=== PATIENT | male | born 1950 | race Caucasian/White ===

== ENCOUNTER 2024-12-30 12:15 | Emergency (ER) | payer MEDICARE, OTHER ==
--- NOTE | 2024-12-30 12:31 | ERPHSYRPT ---
- History of Present Illness Time Seen by Provider: 12/30/24 12:31 Source: patient, family Exam Limitations: no limitations Physician History: This is an obese 74-year-old white male patient who presents to the emergency department by private vehicle accompanied by his spouse after falling. Patient fell onto his right shoulder and has pain in his right shoulder and right ankle. He has never been in our emergency department before. Patient states he was walking and both of his legs "gave out". This is occurred approximate 11 AM this morning prior to arrival. Patient was able to ambulate. Patient denies loss of consciousness. He did not hit his head. He does not have neck pain. Patient has a history of hypertension, diabetes and hyperlipidemia. Occurred: just prior to arrival Reason for Fall: fell from standing pos (Legs "gave out") Injuries/Pain Location: upper extremity (Right shoulder), lower extremity (Right ankle) Loss of Consciousness: no loss of consciousness Quality: aching Severity of Pain-Max: moderate Severity of Pain-Current: moderate Modifying Factors: Improves With: movement Associated Symptoms (Fall): extremity injury (Right shoulder and right ankle), trouble walking Allergies/Adverse Reactions: No Known Drug Allergies Allergy (Verified 12/30/24 12:41) Home Medications: Dapagliflozin Propanediol [Farxiga] 10 mg PO DAILY 12/30/24 [History] Lisinopril 5 mg [Zestril 5 MG] 5 mg PO DAILY 12/30/24 [History] Metoprolol Succinate 50 mg [Toprol Xl 50 MG] 50 mg PO DAILY 12/30/24 [History] Rosuvastatin Calcium 40 mg PO DAILY 12/30/24 [History] Travel Risk - International Travel Have you traveled outside of the country in past 3 weeks: No - Emerging Infectious Disease Are you exhibiting symptoms associated with any current EIDs: No - Review of Systems Constitutional: No Symptoms Eyes: No Symptoms Ears, Nose, & Throat: No Symptoms Respiratory: No Symptoms Cardiac: No Symptoms Abdominal/Gastrointestinal: No Symptoms Genitourinary Symptoms: No Symptoms Musculoskeletal: Fall, Joint Pain (Shoulder and right ankle) Skin: No Symptoms Neurological: No Symptoms Psychological: No Symptoms Endocrine: No Symptoms Hematologic/Lymphatic: No Symptoms Immunological/Allergic: No Symptoms All Other Systems: Reviewed and Negative - Past Medical History Pertinent Past Medical History: Yes - Nursing Vital Signs Nursing Vital Signs: Initial Vital Signs Pulse Rate 57 L 12/30/24 12:25 Respiratory Rate 18 12/30/24 12:25 Blood Pressure 125/59 12/30/24 12:25 O2 Sat by Pulse Oximetry 100 12/30/24 12:25 Pain Scale Pain Intensity 8 - Chantel Coma Score Best Eye Response ([place]): (4) open spontaneously Best Verbal Response ([place]): (5) oriented Best Motor Response ([place]ant[place]): (6) obeys commands Chantel Total: 15 - Physical Exam General Appearance: no apparent distress, alert, anxiety, obese Eye Exam: PERRL/EOMI, eyes nml inspection ENT Exam: airway nml, nml ext.inspection Neck Exam: supple, trachea midline, full range of motion, normal alignment, normal inspection, No c-collar in place Respiratory/Chest Exam: No chest tenderness, No respiratory distress Gastrointestinal Exam: No tenderness Rectal Exam: not done Back Exam: normal inspection, normal range of motion, No CVA tenderness, No vertebral tenderness Extremity Exam: limited range of motion (Shoulder and right ankle), tenderness (Right shoulder and right ankle) Neurologic Exam: alert, oriented x 3, cooperative, optic fibre drawer II-XII nml as tested, sensation nml Skin Exam: normal color, warm, dry SpO2 Interpretation: normal O2 Delivery: Room Air - Course Nursing assessment & vital signs reviewed: Yes Ordered Tests: Active Orders 24 hr Category Date Time Status IV Insertion STAT Care 12/30/24 15:22 Active Splint STAT Care 12/30/24 13:25 Active ANKLE (3 VIEWS) Stat Exams 12/30/24 12:57 Completed SHOULDER Stat Exams 12/30/24 12:57 Completed UPPER EXTREMITY W/O CONTRAST [CT] Stat Exams 12/30/24 13:23 Completed CBC W DIFF Stat Lab 12/30/24 16:00 Completed CMP Stat Lab 12/30/24 16:00 Completed Medication Summary Generic Name Dose Route Start Last Admin Trade Name Freq PRN Reason Stop Dose Admin Sodium Chloride 1,000 mls @ 250 mls/hr 12/30/24 15:30 12/30/24 16:14 Sodium Chloride 0.9% 1000 Ml IV 01/29/25 15:29 250 mls/hr .Q4H JOSE Administration Discontinued Medications Generic Name Dose Route Start Last Admin Trade Name Freq PRN Reason Stop Dose Admin Morphine Sulfate 4 mg 12/30/24 13:53 12/30/24 14:05 Morphine Sulfate 4 Mg/Ml Injection IM 12/30/24 13:54 4 mg STAT ONE Administration Morphine Sulfate Confirm 12/30/24 13:58 Morphine Sulfate 4 Mg/Ml Injection Administered 12/30/24 13:59 Dose 4 mg .ROUTE .STK-MED ONE Ondansetron HCl 4 mg 12/30/24 13:54 12/30/24 14:04 Zofran 4 Mg/Udtablet Orally Disintegrating PO 12/30/24 13:55 4 mg STAT ONE Administration Ondansetron HCl Confirm 12/30/24 13:57 Zofran 4 Mg/Udtablet Orally Disintegrating Administered 12/30/24 13:58 Dose 4 mg .ROUTE .STK-MED ONE Lab/Rad Data: Laboratory Result Diagrams 12/30/24 16:00 12/30/24 16:00 Laboratory Results 12/30/24 12/30/24 Range/Units 16:00 16:00 WBC 11.6 H (4.23-9.07) x10^3/uL RBC 3.36 L (4.63-6.08) x10^6/uL Hgb 10.2 L (13.7-17.5) g/dL Hct 34.9 L (40.1-51.0) % MCV 103.9 H (79.0-92.2) fL MCH 30.4 (25.7-32.2) pg MCHC 29.2 L (32.3-36.5) g/dL RDW 15.4 H (11.6-14.4) % Plt Count 197 (163-337) x10^3/uL MPV 10.7 (9.4-12.4) fL Gran % 83.7 H (34.0-67.9) % Immature Gran % (Auto) 1.2 H (0.001-0.429) % Nucleat RBC Rel Count 0.0 (0.00-0.2) % Eos # (Auto) 0.09 (0.04-0.54) x10^3/uL Immature Gran # (Auto) 0.14 H (0.001-0.031) x10^3u/L Absolute Lymphs (auto) 0.93 L (1.32-3.57) x10^3/uL Absolute Monos (auto) 0.69 (0.30-0.82) x10^3/uL Absolute Nucleated RBC 0.00 (0.00-0.012) x10^3u/L Lymphocytes % 8.0 L (21.8-53.1) % Monocytes % 5.9 (5.3-12.2) % Eosinophils % 0.8 (0.8-7.0) % Basophils % 0.4 (0.2-1.2) % Absolute Granulocytes 9.70 H (1.78-5.38) x10^3/uL Basophils # 0.05 (0.01-0.08) x10^3/uL Sodium 141 (135-145) mmol/L Potassium 4.6 (3.5-5.1) mmol/L Chloride 108 H (98-107) mmol/L Carbon Dioxide 19 L (22-30) mmol/L Anion Gap 18.5 H (5-15) MEQ/L BUN 21 H (9-20) mg/dL Creatinine 1.40 H (0.66-1.25) mg/dL Estimated GFR 53.1 ML/MIN Glucose 117 H (74-106) mg/dL Calcium 9.0 (8.4-10.2) mg/dL Total Bilirubin 0.90 (0.2-1.3) mg/dL AST 58 (17-59) U/L ALT 36 (0-50) U/L Alkaline Phosphatase 88 (38-126) U/L Serum Total Protein 7.0 (6.3-8.2) g/dL Albumin 4.4 (3.5-5.0) g/dL - Progress Progress: improved, pain not gone completely Progress Note: 12/30/24 13:44 My medical decision making and the assignment of moderate complexity to this patient's medical issue today is based on review of the patient's past medical history, review the patient's medication list, review the patient drug allergy list, history present illness and physical findings on examination. The workup in this patient includes x-ray of the patient's right shoulder and x-ray of the patient's right ankle. Differential diagnosis includes but is not limited to fracture/dislocation of right shoulder and right ankle, sprain right shoulder right ankle 12/30/24 15:01 After receiving morphine intramuscularly, the patient slowly becoming hypotensive. We will place an intravenous line and provide him with infusion of crystalloid. Will also draw some labs. The following radiographic studies were interpreted by the radiologist and I reviewed the impression: Right ankle x-ray shows nondisplaced oblique fracture of the distal fibula. Right shoulder x-ray shows displaced fracture inferior to the glenoid process. CT scan of the right upper extremity shows mildly displaced, slightly comminuted oblique fracture of the body of the scapula. Fracture line is just inferior to the glenoid process 12/30/24 16:17 I interpreted the patient's laboratory data results. Based on the laboratory data results, the patient does have slight leukocytosis as well as mild anemia. The remainder of his lab results do not show an acute, urgent medical issue. Patient had a vasovagal response to the morphine intramuscularly. Reassessment of him at this time shows his color to have returned and he is feeling much improved. I spoke with Dr. Thiago Nevarez, the orthopedic surgeon on-call. I reviewed the patient history, presenting complaint, physical findings on examination and the results of our radiographic studies. After review of the radiologist interpreta tion and impression of the findings with Dr. Thiago Nevarez, he states that we can place this patient in a midcalf walking boot as management for the nondisplaced fibular fracture and place the patient in a sling for the management of the scapular fracture that is nondisplaced. We have also made him an appointment to see Dr. Thiago Nevarez at 1 PM tomorrow, 12/31/2024 in the orthopedic clinic followed by an appointment to see human performance consultant Dr. Lilly to address the fibular fracture at 1:30 PM on 12/31/2024 Counseled pt/family regarding: diagnosis, rad results Medical Desision Making - Independent Historian Additional History obtained from: Spouse - Diagnostic Testing Diagnostic test were ordered, analyzed, and reviewed by me: Yes Radiological Interpretation: Reviewed by me, Teleradiologist Report - Risk of complications The pt has a mod risk of morbidity or mortality based on: Need for prescription drug management - Departure Departure Disposition: Home Clinical Impression: Closed right fibular fracture, Closed right scapular fracture Condition: Stable Critical Care Time: No Referrals: JESUS LOPEZ NP [Primary Care Provider] - Follow up/PCP as directed Additional Instructions: Ice pack to tender areas 3 times a day for the next 48 hours. Take your pain medicine another medication as prescribed. Proceed to the orthopedic and podiatric clinics tomorrow, 12/31/2024. You have an appointment to see the orthopedic surgeon, Dr. Randall at 1 PM. Followed by this appointment you are to see podiatric surgeon Dr. Lilly at 1:30 PM Prescriptions: Oxycodone HCl/Acetaminophen [Percocet 5-325 mg Tablet] 1 each PO Q8H PRN PRN #9 tablet MDD 3 PRN Reason: Moderate To Severe Pain
--- NOTE | 2024-12-30 13:39 | XRAY ---
Indication: Status post fall. Comparison: None 3 view right ankle demonstrates nondisplaced oblique fracture distal shaft fibula with soft tissue swelling. Incidental osteopenia and small plantar heel spur. No other bony, articular, or soft tissue abnormalities.
--- NOTE | 2024-12-30 13:41 | XRAY ---
Indication: Status post fall. Comparison: None 3 view right shoulder demonstrates displaced fracture inferior to glenoid process. Elsewhere osteopenia. No other bony, articular, or soft tissue abnormalities.
[2024-12-30] MEDS ORDERED: ZOFRAN ODT 4 MG ONE (13:57)
[2024-12-30] MEDS ORDERED: MORPHINE SULFATE 4 MG INJ ONE (13:58)
[2024-12-30] MEDS: ZOFRAN ODT 4 MG PO ONE (14:04)
[2024-12-30] MEDS: MORPHINE SULFATE 4 MG INJ IM ONE (14:05)
--- NOTE | 2024-12-30 14:47 | XRAY ---
Indication: Status post fall. Scapula fracture on same-day shoulder radiograph. Multiple contiguous axial images obtained through right shoulder. 2-D sagittal and coronal reformatted images obtained. Comparison: None Osseous structures demineralized consistent with patient's age. Mildly displaced slightly comminuted oblique fracture body of scapula. Fracture line just inferior to glenoid process. Glenohumeral and acromioclavicular joint intact. No abnormal effusion. Visualized noncontrasted soft tissues including visualized right lung unremarkable. Impression: Scapula fracture as detailed.
[2024-12-30 16:03] LABS: BASOPHIL % 0.4 % (0.2-1.2); Basophil (Absolute #) 0.05 x10^3/uL (0.01-0.08); Eosinophil % 0.8 % (0.8-7.0); Eosinophil (Absolute #) 0.09 x10^3/uL (0.04-0.54); Hematocrit 34.9 % (40.1-51.0); Hemoglobin 10.2 g/dL (13.7-17.5); IMMATURE GRAN # 0.14 x10^3u/L (0.001-0.031); IMMATURE GRAN % 1.2 % (0.001-0.429); Lymphocyte (Absolute #) 0.93 x10^3/uL (1.32-3.57); Mean Cell Volume 103.9 fL (79.0-92.2); Mean Corpuscular Hemoglobin 30.4 pg (25.7-32.2); Mean Corpuscular Hgb Concent. 29.2 g/dL (32.3-36.5); Mean Platelet Volume 10.7 fL (9.4-12.4); Monocyte (Absolute #) 0.69 x10^3/uL (0.30-0.82); Monocytes % 5.9 % (5.3-12.2); Neutrophil % 83.7 % (34.0-67.9); Platelet Count 197 x10^3/uL (163-337); Red Blood Count 3.36 x10^6/uL (4.63-6.08); Red Cell Distribution Width 15.4 % (11.6-14.4); White Blood Count 11.6 x10^3/uL (4.23-9.07)
[2024-12-30] MEDS ORDERED: Sodium Chloride 0.9% 1000 ML 1,000 ML ONE (16:12)
[2024-12-30] MEDS: Sodium Chloride 0.9% 1000 ML 1,000 ML IV SCH (16:14)
[2024-12-30 16:15] LABS: ALBUMIN 4.4 g/dL (3.5-5.0); ANION GAP 18.5 MEQ/L (5-15); BILIRUBIN,TOTAL 0.9 mg/dL (0.2-1.3); Creatinine 1 1.4 mg/dL (0.66-1.25); EST GLOMERULAR FILTRATION RATE 53.1 ML/MIN; Potassium 4.6 mmol/L (3.5-5.1)
[2024-12-30 16:26] VITALS: RESP 18
[2024-12-30 19:05] VITALS: BP 122/82; PULSE 59; O2SAT 99
== END 2024-12-30 19:00 | disposition home or self-care (01) ==
LOC: ED 12:15
DX: S42.111A Displaced fracture of body of scapula, right shoulder, initial encounter for closed fracture (principal); S82.831A Other fracture of upper and lower end of right fibula, initial encounter for closed fracture; W18.39XA Other fall on same level, initial encounter; I10 Essential (primary) hypertension; E11.9 Type 2 diabetes mellitus without complications; E78.5 Hyperlipidemia, unspecified; Z79.84 Long term (current) use of oral hypoglycemic drugs; Z79.891 Long term (current) use of opiate analgesic; Z79.899 Other long term (current) drug therapy
CPT/HCPCS: 36415; 73030; 73200; 73610; 80053; 85025; 96360; 96372; 99285; J2270; L4386; Q0162